=== PATIENT | male | born 1980 | race African-American/Black ===

== ENCOUNTER 2025-01-24 17:23 | Emergency (ER) | payer OTHER, SELFPAY ==
[2025-01-24] VITALS (9 sets, daily range): BP systolic 125–148; BP diastolic 66–98; PULSE 66–84; RESP 14–22; TEMP 36.6–38.1; O2SAT 95–98; BMI 20.2
--- NOTE | 2025-01-24 17:38 | ED.GENADULT ---
HPI - General Adult General Chief complaint: Overdose Stated complaint: opioids over dose , narcan given Time Seen by Provider: 01/24/25 17:38 Source: patient, EMS, RN notes reviewed and old records reviewed Mode of arrival: EMS Limitations: altered mental status History of Present Illness ED Provider: Karrie HPI narrative: Patient is a 44-year-old male presenting to the emergency department via EMS after being found unresponsive in an alley. Police administered 8 mg of Narcan. Patient arrives to the emergency department awake, alert, restless and agitated, flailing around on the stretcher. Altered, unable to provide a reliable history. complaint: Found unresponsive Related Data Allergies Allergy/AdvReac Type Severity Reaction Status Date / Time From COMPAZINE Allergy Unknown MUSCLE Uncoded 01/24/25 17:39 SPASMS Review of Systems Review of Systems: As per HPI Yes all other systems are reviewed and are negative Constitutional: Constitutional: Reports as per HPI Neurologic: Reports confusion Psychiatric: Psychiatric: Reports confusion [facility] Social History Social History Unable to assess alcohol history related to: Unknown Substance Use Type: Opiates Last Used Substance: Unknown Advance Directives: No Advance Directives Information Provided: No Physical Exam ED Vital Signs: Vital Signs - 24 hr 01/24/25 17:33 01/24/25 19:31 01/24/25 20:00 Temperature 98 F 100.3 F 99.9 F Pulse Rate 81 83 Respiratory Rate 22 H 18 Blood Pressure 148/98 H 134/89 Pulse Oximetry 98 96 Oxygen Delivery Method Room Air Room Air 01/24/25 20:15 01/24/25 20:30 01/24/25 20:45 Temperature Pulse Rate Respiratory Rate 20 22 H 21 H Blood Pressure Pulse Oximetry 95 97 95 Oxygen Delivery Method Room Air Room Air Room Air 01/24/25 20:55 01/24/25 22:02 01/24/25 23:58 Temperature 100.6 F H 97.8 F 98.7 F Pulse Rate 71 66 Respiratory Rate 14 Blood Pressure 131/78 125/66 Pulse Oximetry 98 95 Oxygen Delivery Method Room Air Room Air 01/25/25 01:17 01/25/25 06:40 Temperature 97.9 F 98.3 F Pulse Rate 62 61 Respiratory Rate 18 15 Blood Pressure 121/78 115/75 Pulse Oximetry 98 95 Oxygen Delivery Method Room Air Room Air BMI result Body Mass Index 20.2 Vital signs have been reviewed and appear to be correct. Blood pressure elevated. Heart rate normal. Respiratory rate normal. Temperature normal. Oxygen saturation normal. Const General: no acute distress, alert, awake, confusion and intoxicated appearing Nutritional Appearance: average body habitus Orientation/consciousness: oriented to person, oriented to place and confusion Limitations: altered mental status [facility] Head: Yes normocephalic and Yes atraumatic Ears: hearing grossly normal bilaterally and external ears normal General nose exam: Normal external nose present Face and sinus: Yes face symmetric Mouth: oropharynx normal and moist mucous membranes Throat: Yes uvula midline Eyes Pupils: Equal, round and reactive pupils present Neck Neck: Yes normal visual inspection and Yes supple Resp Effort & Inspection: normal respiratory effort and able to speak in complete sentences Auscultation: clear to auscultation bilaterally Cardio Rate: regular rate Rhythm: regular rhythm Heart sounds: S1 normal heart sound present and S2 normal heart sound present GI Palpation (GI): Soft to palpation and nontender Auscultation: normoactive bowel sounds General: Yes no CVA tenderness Back/Spine/Pelvis Back: no CVA tenderness Skin General skin exam: elasticity normal and turgor normal Neuro General: oriented to person, oriented to place, moves all extremities, no focal motor deficits, CN's II-XI intact bilaterally and confusion Cranial nerves: Yes Equal, round and reactive pupils present Cognition (Neuro): normal cognition Extrem General: Yes full ROM, Yes no pedal edema and Yes no calf tenderness Psych Speech and movement: Psychomotor agitation in speech present Affect: Anxious affect present and Irritable affect present Course Reevaluation(s) Reevaluation #1: Time: 06:35 Date: 01/25/25 Provider: Kemal Arias MD Patient in physician observation for psychiatric/recovery team evaluation.? No acute events reported overnight. No current complaints. VS stable.? Patient is in recovery team evaluation for unintentional overdose. Patient did receive IM medications including Valium, Haldol, Toradol. Also received Narcan 8 mg intranasally. Patient has been in the emergency department for 13 hours Will continue to monitor. Time: 11:37 Reevaluation #2: 01/25/25 11:38 RIANA Yoon: Patient now awake and alert, eating and drinking, denies any current complaints and requesting discharge. He states that he is currently on methadone and does not wish to speak with the recovery team. Feel patient is stable for discharge home at this time. Given take-home Narcan. Will provide with info for [facility] in discharge instructions. Medications Administered Discontinued Medications Generic Name Dose Route Start Last Admin Trade Name Stefan PRN Reason Stop Dose Admin Diazepam 5 mg 01/24/25 17:42 01/24/25 17:55 Diazepam 10 Mg/2 Ml Cartridge IM 01/24/25 17:43 5 mg STAT STA Administration Diazepam 5 mg 01/24/25 18:51 01/24/25 18:51 Diazepam 10 Mg/2 Ml Cartridge IM 01/24/25 18:52 5 mg STAT STA Administration Diazepam 5 mg 01/24/25 18:50 01/24/25 19:59 Diazepam 10 Mg/2 Ml Cartridge IM 01/24/25 18:51 5 mg STAT STA Administration Diphenhydramine HCl 25 mg 01/24/25 18:07 01/24/25 18:10 Diphenhydramine Hcl 50 Mg/Ml Vial IM 01/24/25 18:08 25 mg ONCE ONE Administration Haloperidol Lactate 5 mg 01/24/25 18:07 01/24/25 18:10 Haloperidol Lactate 5 Mg/Ml Vial IM 01/24/25 18:08 5 mg ONCE ONE Administration Ketorolac Tromethamine 30 mg 01/24/25 19:52 01/24/25 20:00 Ketorolac Tromethamine 30 Mg/Ml Vial IM 01/24/25 19:53 30 mg ONCE ONE Administration Medical Decision Making Medical Decision Making [facility] Narrative: Patient is a 44-year-old male presenting to the emergency department via EMS after being found unresponsive in an alley. On exam patient is awake, A+Ox3, VS WNL, afebrile, physical exam findings as above. Given reported symptoms and physical exam findings, initial differential includes but is not limited to drug or alcohol intoxication or withdrawal, electrolyte abnormality. No evidence of traumatic injury. Patient repeatedly attempting to go into other patient's rooms. Medicated with IM Valium, diphenhydramine, Haldol. Continues to remain agitated, 2nd dose of IM Valium ordered. Q1hour POC glucose levels ordered as local fentanyl has tested positive for medetomidine which is known to cause bradycardia, hypotension, hypoglycemia. Patient signed out to [facility] [place] pending return to baseline. Take home naloxone ordered. Differential Diagnosis Differential Diagnoses: The differential diagnosis associated with the presentation includes As per [facility] Admission/Observation Consideration of admission/observation: Escalation of care including admission/observation considered Lab Data Labs: Lab Results 01/25/25 Range/Units 00:01 POC Glucose 108 (60-115) mg/dL External Record Review External record reviewed: Inpatient record, Office record and Outpatient record Discharge Plan Discharge Clinical Impression: Drug overdose Patient Disposition: Home, Self-Care Instructions: Adult Overdose (ED) Additional Instructions: Overdose You were seen in our Emergency Department for an overdose today. You received narcan in order to reverse the effects of overdose. Narcan only lasts about 45 min to 1 hour in the system. You may have been given narcan to take home with you today, please keep it near you if you are going to use again, so others can use it if needed.? The number one risk for fatal overdose is using alone? [employer] is a 24/7 hotline where you can be on the phone with someone while you use, and they can call for help if they suspect an overdose: [phone] Things to look out for when you leave include severe vomiting or diarrhea, headaches, muscle cramps, fever, coughing, chest pain, or if you feel so short of breath you cannot walk to the bathroom. Please seek care and return any time for worsening symptoms.? You may have been provided with safer injection?items, please take time to take care of YOU and your health. Use new supplies whenever possible to lessen the chances of infections and other illnesses.? If you need more supplies, please go [facility],? [address] [place] [address] OR you can call or text to coordinate delivery of safer supplies. If you decide you want to stop or cut down on how much you?re using, please call the numbers on the list provided to you or you can come to our outpatient Addiction Treatment office [facility] (M-F 9am-5p) [address] [place] [address], [address] [phone] Print Language: [place]an
[2025-01-24] MEDS: diazePAM 10 MG/2 ML CARTRIDGE 5 MG IM ×3 (17:55→19:59)
--- NOTE | 2025-01-24 18:06 | PC.NURSE ---
Pt scoring 25 on COWS; pt flailing all over stretcher, unable to participate with care; jumping OOB repeatedly and ran into another pt's room; pt gv IM Valium and sitter at bedside for safety
--- NOTE | 2025-01-24 18:51 | PC.NURSE ---
Pt remains at COWS over 20 (26); restless, jumping off stretcher, yawning; sitter remains in place for pt safety; pt medicated for elevated COWS score
[2025-01-25 00:05] LABS: Glucose, Whole Blood 108 mg/dL (60-115)
--- NOTE | 2025-01-25 00:35 | PC.NURSE ---
VSS. Patient resting in a stretcher bed, not in acute distress. 1:1 sitter at bedside.
[2025-01-25 01:17] VITALS: BP 121/78; PULSE 62; RESP 18; TEMP 36.6; O2SAT 98
[2025-01-25 06:40] VITALS: BP 115/75; PULSE 61; RESP 15; TEMP 36.8; O2SAT 95
[2025-01-25 06:47] VITALS: PULSE 81
[2025-01-25 11:49] VITALS: BP 130/73; PULSE 87; RESP 18; TEMP 36.6; O2SAT 97
[2025-01-25] MEDS: Naloxone HCl Nasal TAKE HOME 4 MG SPRAY 8 MG NOSTRILALT (11:55)
[2025-01-25 11:57] VITALS: BP 130/73; PULSE 87; RESP 18; TEMP 36.6; O2SAT 97
== END 2025-01-25 11:55 | disposition home or self-care (01) ==
PROVIDERS: Emergency Provider Emergency Medicine; PCP Internal Medicine
DX: T65.91XA Toxic effect of unspecified substance, accidental (unintentional), initial encounter (principal); R40.4 Transient alteration of awareness; Y92.9 Unspecified place or not applicable
CPT/HCPCS: 82947; 96372; 99285; J1200; J1630; J1885; J3360